=== PATIENT | female | born 1980 | race American Indian/Alaskan Native ===

== ENCOUNTER 2018-01-27 10:05 | Day surgery (SDC) | payer BC ==
[2018-01-25 10:15] VITALS: BMI 28.3
[2018-01-27] MEDS ORDERED: cefOXitin IV 2 gm in Dextrose 0 GM/0 ML BAG IVPB ONE (11:35)
[2018-01-27] MEDS ORDERED: Propofol 10 mg/ml Inj (20 ML) ONE (11:51)
[2018-01-27] MEDS ORDERED: ceFAZolin IV 2 gm in Dextrose 2 GM/50 ML BAG IVPB ONE (11:57)
[2018-01-27] MEDS ORDERED: Rocuronium 10 mg/ml (10 ml) ONE (12:04)
[2018-01-27] MEDS ORDERED: Succinylcholine Chloride 20 mg/ml Syr (5 ml) IV ONE (12:04)
[2018-01-27] MEDS ORDERED: HYDROmorphone 0.5 mg/0.5 ml ISec IVP PRN (12:54)
[2018-01-27 13:20] VITALS: O2SAT 100
[2018-01-27 14:09] VITALS: TEMP 97.8
[2018-01-27 15:58] VITALS: BP 118/70; PULSE 71; RESP 18
--- NOTE | 2018-01-30 05:01 | OP ---
PROCEDURE DATE: 01/27/2018 NATURE OF OPERATION: Dilatation and curettage, hysteroscopy, laparoscopic lysis of pelvic adhesions, and aspiration of cul-de-sac fluid. ATTENDING SURGEON: Chacorta Strong MD OPERATING SURGEON: Chacorta Strong MD SCIENCE INSTRUCTOR: Dr. Neff. KIND OF ANESTHESIA: General. PREOPERATIVE DIAGNOSES: Chronic pelvic pain, fibroid uterus, menometrorrhagia. POSTOPERATIVE DIAGNOSES: Pelvic adhesion and left ovarian cyst, corpus luteal. FINDINGS: On pelvic examination under anesthesia, the external genitalia were normal. Vagina was parous. The cervix was clean, closed, firm and pink. The uterus was slightly bulky, directed anteriorly, sounded to 3.5 inches in depth with a smooth cavity, and a small amount of endometrial tissue obtained. The laparoscopic finding reveals small 2-cm left ovarian cyst, which appears to be corpus luteal cyst. The uterus was somewhat enlarged with possible adenomyoma on the fundal area. Both fallopian tubes were intact. There was cul-de-sac fluid about 10 mL, which was aspirated and filmy cul-de-sac adhesion, which was lysed with a probe. DESCRIPTION OF PROCEDURE: Under general anesthesia, the patient in dorsal lithotomy position, she was prepped and draped and catheterized in the usual sterile manner. A heavy weighted speculum was placed on the posterior vaginal vault and with the help of Moya speculum, the anterior lip of the cervix was grasped with a tenaculum. The uterus was sounded and found to be anteverted to a depth of 3.5 inches. Serial dilatation of the cervix was done with a Hanks dilator up to #18. Hysteroscopic instrument was inserted and with sorbitol, the uterine cavity was distended. The endometrial cavity was visualized. Then, the hysteroscope was removed, and further dilatation of cervix was done with Hanks dilator up to #20. This was followed by sharp clockwise curettage of endometrial cavity which was productive of a small amount of endometrial tissue. The cavity was noted to be smooth. Then, the laparoscopy was done. The ZUMI cannula was placed into the endocervix and held with a balloon. The Veress needle was inserted into the inferior fold of the umbilicus. The abdomen was insufflated with approximately 3 L of carbon dioxide. The trocar was inserted into the peritoneal cavity after the incision through the skin and fascia was made. The right-angled scope was placed into the abdomen, and the contents of the pelvis were viewed. There was a small corpus luteal cyst on the left ovary with the cul-de-sac fluid about 10 mL was aspirated, was sent for cytology. On the right cul-de-sac area, there are filmy adhesions, which were lysed with laparoscopic probe. At this point in time that everything else was in the pelvis, the procedure was then terminated after all the instruments were removed and the abdomen evacuated of the carbon dioxide. The subumbilical incision was closed with a 4-0 Monocryl suture. The Steri-Strips was placed on the incision. The patient tolerated the procedure well and was sent to the recovery room in satisfactory condition. Chacorta Strong MD
== END 2018-01-27 15:45 | disposition home or self-care (01) ==
LOC: C.SDS 10:05
PROVIDERS: ATTEND Obstetrics & Gynecology Gynecology
DX: N85.8 Other specified noninflammatory disorders of uterus (principal); N83.12 Corpus luteum cyst of left ovary; N73.6 Female pelvic peritoneal adhesions (postinfective); N92.0 Excessive and frequent menstruation with regular cycle; D25.1 Intramural leiomyoma of uterus; Z98.890 Other specified postprocedural states; Z79.899 Other long term (current) drug therapy
CPT/HCPCS: 49329; 57020; 58558; 88305; J0690; J1170; J2704; J3010